=== PATIENT | female | born 1945 | race Caucasian/White ===

== ENCOUNTER 2022-01-26 18:42 | Observation (INO) ==
[2022-01-26 19:13] LABS: BILIRUBIN,URINE NEGATIVE (NEGATIVE); BLOOD/HEMOGLOBIN,URINE 2+ (NEGATIVE); GLUCOSE, URINE NEGATIVE (NEGATIVE); KETONES,URINE NEGATIVE (NEGATIVE); LEUKOCYTE ESTERASE ,URINE 3+ (NEGATIVE); NITRITES,URINE NEGATIVE (NEGATIVE); PROTEIN,URINE NEGATIVE (NEGATIVE); UROBILINOGEN,URINE NORMAL (NORMAL)
[2022-01-26 19:18] LABS: APPEARANCE,URINE SLIGHTLY HAZY (CLEAR); COLOR,URINE YELLOW (YELLOW)
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
[2022-01-26 19:38] LABS: BASOPHILS % (AUTO) 0.5 % (0.2-1.0); EOSINOPHILS # (AUTO) 0.1 x10^3/uL (0.0-0.2); EOSINOPHILS % (AUTO) 1.5 % (0.9-2.9); HEMOGLOBIN 14.9 g/dL (12.0-16.0); LYMPHOCYTES # (AUTO) 1.3 X10^3/uL (1.3-2.9); LYMPHOCYTES % (AUTO) 20.6 % (21.0-51.0); MEAN CORPUSCULAR HEMOGLOBIN 28.6 pg (27.0-34.0); MEAN CORPUSCULAR HGB CONC 33.7 g/dL (33.0-35.0); MEAN CORPUSCULAR VOLUME 84.7 fL (80.0-100.0); MEAN PLATELET VOLUME 9.1 fL (7.4-11.0); MONOCYTES # (AUTO) 0.5 x10^3/uL (0.3-0.8); MONOCYTES % (AUTO) 7.6 % (0.0-13.0); NEUTROPHILS # (AUTO) 4.4 x10^3/uL (2.2-4.8); NEUTROPHILS % (AUTO) 69.8 % (42.0-75.0); RED CELL DISTRIBUTION WIDTH 15.3 % (11.6-16.5); WHITE BLOOD COUNT 6.3 X10^3/uL (3.6-10.0)
[2022-01-26 19:40] LABS: BACTERIA,URINE 1+ /HPF (NEGATIVE); HYALINE CASTS, URINE MODERATE /LPF (NEGATIVE); SQUAMOUS EPITHELIAL CELL,UR FEW /HPF (NEGATIVE)
[2022-01-26 19:55] LABS: ALANINE AMINOTRANSFERASE 18 Units/L (12-78); ALBUMIN 3.9 g/dL (3.4-5.0); ALKALINE PHOSPHATASE 122 Units/L (46-116); ASPARTATE AMINO TRANSFERASE 22 Units/L (15-37); BLOOD UREA NITROGEN 19 mg/dL (7-18); CALCIUM 9.4 mg/dL (8.5-10.1); CARBON DIOXIDE 25.7 mmol/L (21-32); CHLORIDE 102 mmol/L (98-107); COR NA(FOR HYPERGLY) 143 mmol/L (136-145); CREATININE 1.28 mg/dL (0.55-1.02); SODIUM 142 mmol/L (136-145); TOTAL PROTEIN 8.1 g/dL (6.4-8.2); eGFR NON BLACK RACES 43 (>60)
--- NOTE | 2022-01-26 20:00 | CT ---
HISTORYAMS/lethargicSTUDYBRAIN W/O CONCOMPARISONNone available.TECHNIQUEAxial non-contrast images of the head were obtained with coronal and sagittal reformats provided.Radiation dose: 1187.80 mGy-cm total DLPFINDINGSNo abnormal areas of acute attenuation in the brain parenchyma.Lopez-white differentiation remains intact.No intracranial, extra-axial, fluid collection.No hemorrhage.Periventricular chronic microvascular disease.No mass, mass effect or midline shift.Age related brain parenchymal global atrophy.No ventriculomegaly.No acute fracture.Sinuses are well aerated.Mastoid air cells are well aerated.Globes and intra-orbital contents are unremarkable.IMPRESSIONNo acute intracranial abnormality identified.Electronically signed by: Maninder Fu (Jan 26, 2022 19:58:29)
[2022-01-26] MEDS: EFFEXOR XR 150 MG CAP 24-HR PO SCH ×2 (22:44→23:30)
[2022-01-26] MEDS: KEFLEX CAP 500 MG PO SCH ×2 (22:44→23:30)
[2022-01-26 23:01] VITALS: BMI 33.9
[2022-01-26] MEDS ORDERED: APRESOLINE INJ 20 MG VIAL IVP ONE (23:01)
[2022-01-26] MEDS: NS 1,000 ML IV 1,000 ML IV SCH (23:03)
[2022-01-26] MEDS ORDERED: CATAPRES TAB 0.1 MG PO ONE (23:12)
[2022-01-27 05:12] LABS: BASOPHILS % (AUTO) 0.4 % (0.2-1.0); EOSINOPHILS # (AUTO) 0.1 x10^3/uL (0.0-0.2); EOSINOPHILS % (AUTO) 1.6 % (0.9-2.9); HEMATOCRIT 39.5 % (36.0-47.0); HEMOGLOBIN 13.5 g/dL (12.0-16.0); LYMPHOCYTES # (AUTO) 1.3 X10^3/uL (1.3-2.9); LYMPHOCYTES % (AUTO) 23.5 % (21.0-51.0); MEAN CORPUSCULAR HEMOGLOBIN 28.7 pg (27.0-34.0); MEAN CORPUSCULAR HGB CONC 34.1 g/dL (33.0-35.0); MEAN CORPUSCULAR VOLUME 84.3 fL (80.0-100.0); MEAN PLATELET VOLUME 9.1 fL (7.4-11.0); MONOCYTES # (AUTO) 0.5 x10^3/uL (0.3-0.8); MONOCYTES % (AUTO) 9.8 % (0.0-13.0); NEUTROPHILS # (AUTO) 3.6 x10^3/uL (2.2-4.8); NEUTROPHILS % (AUTO) 64.7 % (42.0-75.0); RED BLOOD COUNT 4.68 X10^6/uL (3.5-5.4); RED CELL DISTRIBUTION WIDTH 15.4 % (11.6-16.5); WHITE BLOOD COUNT 5.6 X10^3/uL (3.6-10.0)
[2022-01-27 05:26] LABS: ALANINE AMINOTRANSFERASE 13 Units/L (12-78); ALBUMIN 3.4 g/dL (3.4-5.0); ALKALINE PHOSPHATASE 105 Units/L (46-116); ASPARTATE AMINO TRANSFERASE 17 Units/L (15-37); BLOOD UREA NITROGEN 21 mg/dL (7-18); CARBON DIOXIDE 26.8 mmol/L (21-32); CHLORIDE 104 mmol/L (98-107); COR NA(FOR HYPERGLY) 143 mmol/L (136-145); CREATININE 1.21 mg/dL (0.55-1.02); SODIUM 142 mmol/L (136-145); TOTAL PROTEIN 6.9 g/dL (6.4-8.2); eGFR NON BLACK RACES 46 (>60)
[2022-01-27] MEDS: KEFLEX CAP 500 MG PO SCH (05:28)
[2022-01-27] MEDS ORDERED: K-RIDER 10 MEQ/NS 100 ML 10 MEQ/100 ML BAG IV PRN (06:18)
[2022-01-27] MEDS ORDERED: MICRO K EXTEN CAP 10 MEQ PO PRN (06:18)
[2022-01-27] MEDS ORDERED: POTASSIUM CHLORIDE LIQ 20 MEQ UDC PO PRN (06:18)
[2022-01-27] MEDS ORDERED: POTASSIUM CHL 60 MEQ/NS 0.45% 500 ML IV PRN (06:18)
[2022-01-27] MEDS ORDERED: KLOR-CON PO PRN (06:18)
[2022-01-27] MEDS ORDERED: POTASSIUM CHL 40 MEQ/NS 0.45% 500 ML IV PRN (06:18)
[2022-01-27] MEDS: EFFEXOR XR 150 MG CAP 24-HR PO SCH (08:15)
[2022-01-27] MEDS: COREG TAB 25 MG PO SCH ×2 (08:15→20:24)
[2022-01-27] MEDS ORDERED: ROCEPHIN VIAL 1 GRAM 1 G in NS 100 ML IV + SPIKE MINIBAG* 100 ML IV SCH (09:00)
[2022-01-27] MEDS: ROCEPHIN VIAL 1 GRAM 1 G in NS 100 ML IV 100 ML IV SCH (09:45)
[2022-01-27] MEDS: LOVENOX INJ 40 MG SYR SC SCH (09:46)
--- NOTE | 2022-01-27 09:58 | RAD ---
HISTORYFellSTUDYLeft hip two viewsCOMPARISONNoneFINDINGSNo acute findings left hip. There is no evidence for fracture or dislocation, femoral head deformity or joint space abnormality.IMPRESSIONNo acute findings left hip.Electronically signed by: ALKA FIGUEROA (Jan 27, 2022 09:56:46)
--- NOTE | 2022-01-27 10:59 | DR.H&P ---
H&P - History & Physical for Day of: H&P Date: 01/26/22 - Chief Complaint Chief Complaint: AMS, RIGHT FOOT PAIN - History of Present Illness History of Present Illness: IS A 76 YEAR OLD WHITE FEMALE. SHE PRESENTED TO THE ER VIA EMS WITH FAMILY REPORTING THAT PATIENT HAS HAD ALTERED MENTAL STATUS, WEAKNESS, AND RECENT FALL. APPARENTLY, PATIENT FELL EARLY IN THE MORNING ON 01/26/22 AND HAD RIGHT FOOT AND RIGHT LEG PAIN. SHE WAS BROUGHT TO THE ER AT THAT TIME. AN XRAY WAS OBTAINED AND REVEALED: Normal appearing tibia and fibula. Suspect acute avulsion fracture from the dorsal navicular surface. SHE WAS DISCHARGED HOME, BUT HER NIECE CALLED EMS BACK TO GET HER WHEN THE CONFUSION AND WEAKNESS PERSISTED. HER PMH INCLUDES: DEMENTIA, CAD, IN, HTN, DEPRESSION, CHRONIC BACK PAIN. ON ARRIVAL TO THE ER, PATIENT WAS NOTED WITH DECREASED LOC AND DISORIENTATION. PUPILS WERE PINPOINT AND SLUGGISH. SHE DID RESPOND TO LOUD VERBAL STIMULI, BUT SPEECH WAS INCOMPREHENSIBLE. PATIENTS NIECE REPORTS THAT SHE GAVE PATIENT A XANAX THE NIGHT BEFORE TO HELP HER REST. XANAX BELONGS TO THE NIECE AND IS NOT PRESCRIBED TO THE PATIENT. ON ARRIVAL TO THE ER, VITALS WERE: 98.0-95-18-99%-181/88. LABS WERE OBTAINED. WBC 6.3, RBC 5.20, HGB 14.9, HCT 44.0, SODIUM 142, POTASSIUM 3.7, CHLORIDE 102, CARBON DIOXIDE 25.7, BUN 19, CREATININE 1.28, GLUCOSE 157, CALCIUM 9.4, AST 22, ALT 18, ALK PHOS 122, TOTAL PROTEIN 8.1, ALBUMIN 3.9. A URINALYSIS WAS OBTAINED AND REVEALED: WBC 20-30, RBC 3-5, BACTERIA 1+, LEUKOCYTES 3+. URINE DRUG SCREEN WAS POSITIVE FOR BENZODIAZEPINES. A URINE CULTURE WAS SET UP. COVID-[address] WAS OBTAINED AND REVEALED: No acute intracranial abnormality identified. EKG REVEALED: ATRIAL SENSED VENTRICULAR PACED RHYTHM WITH HR 93. IN THE ER, SHE WAS GIVEN CATAPRES 0.1MG PO X 1, KEFLEX 500MG PO X 1. SHE WAS ADMITTED TO THE HOSPITAL FOR FURTHER EVALUATION AND TREATMENT OF UTI, AMS, AVULSION FRACTURE DORSAL NAVICULAR SURFACE, HTN, DEMENTIA. SHE WAS STARTED ON NORMAL SALINE AT 80 ML/HR, ROCEPHIN 1G IV DAILY, LOVENOX 40MG SC DAILY, NORCO 5/325MG PO Q4H PRN PAIN, THE POTASSIUM AND MAGNESIUM PROTOCOLS, AND HER HOME MEDICATIONS OF VENLAFAXINE, ARICEPT, AND COREG WERE RESUMED. WE WILL CONSULT ORTHO FOR FURTHER RECOMMENDATIONS REGARDING FRACTURE. OTHERWISE, WE WILL FOLLOW-UP WITH AM LABS AND CONTINUE TO MONITOR. TIME SPENT ON CLINICAL ASSESSMENT, REVIWING LABS AND IMAGING, DECISION MAKING, AND DOCUMENTATION GREATER THAN 75 MINUTES. - Past Medical History Past Medical History: [place], Coronary Artery Disease, Dementia, Depression - Past Surgical History Surgical History: CABG/Valve Surgery, Hysterectomy - Family History Family Medical History: Diabetes Mellitus, Coronary Artery Disease, Hypertension - Social History Does patient currently use any type of tobacco product: No Have you used tobacco products in the last 12 months: No Does any household member use tobacco: Yes Alcohol Use: None Drug Use: None - Medications Home Medications: No Known Drug Allergies Allergy (Verified 01/26/22 19:18) CONTINUE taking the following medications albuterol sulfate 90 mcg/actuation aerosol inhaler 1 puff inhalation Q6H PRN 01/26/22 [History] carvedilol 25 mg tablet 1 tab PO BID 01/26/22 [History] cyclobenzaprine 10 mg tablet 1 tab PO TID 01/26/22 [History] donepezil 10 mg tablet 1 tab PO QPM 01/26/22 [History] fluticasone 250 mcg-salmeterol 50 mcg/dose blistr powdr for inhalation 1 puff inhalation BID 01/26/22 [History] naloxone 4 mg/actuation nasal spray 1 spray intranasal 1-2XD PRN 01/26/22 [History] ondansetron HCl 4 mg tablet 1 tab PO TID 01/26/22 [History] oxycodone 15 mg tablet 1 tab PO Q8H PRN 01/26/22 [History] venlafaxine 150 mg capsule,extended release 24 hr 1 cap PO QDAY 01/26/22 [History] - Review of Systems Constitutional: Weakness Eyes: No Symptoms Reported ENT: No Symptoms Reported Respiratory: No Symptoms Reported Cardiovascular: No Symptoms Reported Gastrointestinal: No Symptoms Reported Genitourinary: No Symptoms Reported Musculoskeletal: See HPI, Leg Pain (RIGHT ), Foot Pain Skin: No Symptoms Reported Neurological: Weakness, Confusion - Physical Exam Vital Signs: Temperature 97.5 F Pulse Rate [Left Brachial] 89 Pulse Rate [Brachial] 91 Pulse Rate 95 Respiratory Rate 24 Blood Pressure [Left Arm] 120/58 Blood Pressure 181/88 O2 Sat by Pulse Oximetry 100 Oriented: Not Oriented Eyes: Normal Ear: Normal Nose: Normal Throat: Normal Respiratory: Diminished Throughout Cardiovascular: Normal : Normal Auscultation: Bowel Sounds: Normal Palpation: Normal Tenderness: Normal Skin: Normal Musculoskeletal: Right, Leg, Foot, Tender Mood Description: Calm Affect: Normal Speech Pattern: Unclear, Inappropriate - Assessment/Plan (1) Urinary tract infection Qualifiers: Urinary tract infection type: acute cystitis Hematuria presence: with hematuria Qualified Code(s): N30.01 - Acute cystitis with hematuria Status: Acute Plan: ADMIT, NORMAL SALINE AT 80 ML/HR, ROCEPHIN 1G IV DAILY, LOVENOX 40MG SC DAILY, NORCO 5/325MG PO Q4H PRN PAIN, THE POTASSIUM AND MAGNESIUM PROTOCOLS, AND HER HOME MEDICATIONS OF VENLAFAXINE, ARICEPT, AND COREG WERE RESUMED. (2) Altered mental status Qualifiers: Altered mental status type: transient alteration of awareness Qualified Code(s): R40.4 - Transient alteration of awareness Status: Acute (3) Avulsion fracture of navicular bone of right foot Qualifiers: Encounter type: initial encounter Fracture type: closed Qualified Code(s): S92.251A - Displaced fracture of navicular [scaphoid] of right foot, initial encounter for closed fracture Status: Acute (4) HTN (hypertension) Qualifiers: Hypertension type: primary hypertension Qualified Code(s): I10 - Essential (primary) hypertension Status: Chronic (5) Dementia Qualifiers: Dementia type: vascular dementia Dementia behavioral disturbance: without behavioral disturbance Qualified Code(s): F01.50 - Vascular dementia without behavioral disturbance Status: Chronic - Allergies Allergies/Adverse Reactions: Allergies Allergy/AdvReac Type Severity Reaction Status Date / Time No Known Drug Allergies Allergy Verified 01/26/22 19:18
[2022-01-27] MEDS: NS 1,000 ML IV 1,000 ML IV SCH (11:47)
[2022-01-27] MEDS: NORCO 5/325 MG TAB PO PRN (13:57)
--- NOTE | 2022-01-27 16:52 | DR.CONSULT ---
CONSULT Consultation for Day of: Date: 01/27/22 Chief Complaint Chief Complaint: Right foot pain Allergies Allergies Allergy/AdvReac Type Severity Reaction Status Date / Time No Known Drug Allergies Allergy Verified 01/27/22 16:52 History of Present Illness History of Present Illness: 76 year old female who had a fall on 01/26/2022. Upon presentation to the ER, XRays of the right foot were obtained demonstrating a right navicular avulsion fracture. She reports pain in the right foot. Denies numbness, tingling or weakness in the right foot. She denies prior injury to the right foot that she can recall. Past Medical History Past Medical History: Coronary Artery Disease, Dementia, Depression and [place] Past Surgical History Surgical History: CABG/Valve Surgery and Hysterectomy Family History Family Medical History: Diabetes Mellitus, Coronary Artery Disease and Hypertension Social History Does patient currently use any type of tobacco product: No Have you used tobacco products in the last 12 months: No Does any household member use tobacco: Yes Alcohol Use: None Drug Use: None Medications Home Medications: No Known Drug Allergies Allergy (Verified 01/26/22 19:18) CONTINUE taking the following medications albuterol sulfate 90 mcg/actuation aerosol inhaler 1 puff inhalation Q6H PRN 01/26/22 [History] carvedilol 25 mg tablet 1 tab PO BID 01/26/22 [History] cyclobenzaprine 10 mg tablet 1 tab PO TID 01/26/22 [History] donepezil 10 mg tablet 1 tab PO QPM 01/26/22 [History] fluticasone 250 mcg-salmeterol 50 mcg/dose blistr powdr for inhalation 1 puff inhalation BID 01/26/22 [History] naloxone 4 mg/actuation nasal spray 1 spray intranasal 1-2XD PRN 01/26/22 [History] ondansetron HCl 4 mg tablet 1 tab PO TID 01/26/22 [History] oxycodone 15 mg tablet 1 tab PO Q8H PRN 01/26/22 [History] venlafaxine 150 mg capsule,extended release 24 hr 1 cap PO QDAY 01/26/22 [History] Physical Exam Vital Signs: Temperature 97.6 F Pulse Rate [Left Brachial] 79 Pulse Rate [Brachial] 91 Pulse Rate 95 Respiratory Rate 20 Blood Pressure [Left Arm] 106/58 Blood Pressure 181/88 O2 Sat by Pulse Oximetry 94 Oriented: Person and Place Eyes: Normal and Other Ear: Normal Nose: Other (atraumatic) Musculoskeletal: Foot (right marine water tender to palpation of the right navicular bone. Nontender in the right tibial/fibular midshaft and proximally nontender. Able to wiggle right foot.) Plan (1) Avulsion fracture of navicular bone of right foot: Status: Acute Qualifiers: Encounter type: initial encounter Fracture type: closed Qualified Code(s): S92.251A - Displaced fracture of navicular [scaphoid] of right foot, initial encounter for closed fracture Narrative Support Text: nonweightbearing right foot and ankle. Immobilize with aircast boot. Follow up in clinic within 1 week with [facility]. Plan: nonweightbearing right foot and ankle. Immobilize with aircast boot. Follow up in clinic within 1 week with [facility].
[2022-01-27] MEDS: ARICEPT TAB 10 MG PO SCH (20:24)
[2022-01-28] MEDS: NS 1,000 ML IV 1,000 ML IV SCH ×2 (01:32→13:13)
[2022-01-28 06:00] LABS: BASOPHILS % (AUTO) 0.5 % (0.2-1.0); EOSINOPHILS # (AUTO) 0.1 x10^3/uL (0.0-0.2); HEMATOCRIT 35.5 % (36.0-47.0); HEMOGLOBIN 11.9 g/dL (12.0-16.0); LYMPHOCYTES # (AUTO) 1.6 X10^3/uL (1.3-2.9); LYMPHOCYTES % (AUTO) 22.8 % (21.0-51.0); MEAN CORPUSCULAR HEMOGLOBIN 28.5 pg (27.0-34.0); MEAN CORPUSCULAR HGB CONC 33.5 g/dL (33.0-35.0); MEAN CORPUSCULAR VOLUME 85.3 fL (80.0-100.0); MEAN PLATELET VOLUME 8.6 fL (7.4-11.0); MONOCYTES # (AUTO) 0.5 x10^3/uL (0.3-0.8); MONOCYTES % (AUTO) 7.5 % (0.0-13.0); NEUTROPHILS # (AUTO) 4.6 x10^3/uL (2.2-4.8); NEUTROPHILS % (AUTO) 67.2 % (42.0-75.0); RED BLOOD COUNT 4.16 X10^6/uL (3.5-5.4); RED CELL DISTRIBUTION WIDTH 15.2 % (11.6-16.5); WHITE BLOOD COUNT 6.8 X10^3/uL (3.6-10.0)
[2022-01-28 06:11] LABS: ALANINE AMINOTRANSFERASE 13 Units/L (12-78); ALBUMIN 2.8 g/dL (3.4-5.0); ALKALINE PHOSPHATASE 99 Units/L (46-116); ASPARTATE AMINO TRANSFERASE 14 Units/L (15-37); BLOOD UREA NITROGEN 22 mg/dL (7-18); CALCIUM 8.1 mg/dL (8.5-10.1); CARBON DIOXIDE 25.8 mmol/L (21-32); CHLORIDE 107 mmol/L (98-107); COR CA(FOR HYPOALB) 9.1 mg/dL (8.5-10.1); COR NA(FOR HYPERGLY) 141 mmol/L (136-145); CREATININE 0.88 mg/dL (0.55-1.02); SODIUM 140 mmol/L (136-145); eGFR NON BLACK RACES > 60 (>60)
[2022-01-28] MEDS: EFFEXOR XR 150 MG CAP 24-HR PO SCH (08:57)
[2022-01-28] MEDS: COREG TAB 25 MG PO SCH ×2 (08:57→20:08)
[2022-01-28] MEDS: ROCEPHIN VIAL 1 GRAM 1 G in NS 100 ML IV 100 ML IV SCH (08:57)
[2022-01-28] MEDS: LOVENOX INJ 40 MG SYR SC SCH (08:58)
[2022-01-28] MEDS: ARICEPT TAB 10 MG PO SCH (20:08)
[2022-01-28] MEDS: NORCO 5/325 MG TAB PO PRN (20:12)
[2022-01-29 05:04] LABS: BASOPHILS % (AUTO) 0.5 % (0.2-1.0); EOSINOPHILS # (AUTO) 0.2 x10^3/uL (0.0-0.2); EOSINOPHILS % (AUTO) 3.6 % (0.9-2.9); HEMATOCRIT 32.6 % (36.0-47.0); LYMPHOCYTES # (AUTO) 1.7 X10^3/uL (1.3-2.9); LYMPHOCYTES % (AUTO) 34.8 % (21.0-51.0); MEAN CORPUSCULAR HEMOGLOBIN 28.8 pg (27.0-34.0); MEAN CORPUSCULAR HGB CONC 33.8 g/dL (33.0-35.0); MEAN CORPUSCULAR VOLUME 85.4 fL (80.0-100.0); MEAN PLATELET VOLUME 8.8 fL (7.4-11.0); MONOCYTES # (AUTO) 0.4 x10^3/uL (0.3-0.8); MONOCYTES % (AUTO) 8.4 % (0.0-13.0); NEUTROPHILS # (AUTO) 2.6 x10^3/uL (2.2-4.8); NEUTROPHILS % (AUTO) 52.7 % (42.0-75.0); RED BLOOD COUNT 3.82 X10^6/uL (3.5-5.4); RED CELL DISTRIBUTION WIDTH 15.2 % (11.6-16.5); WHITE BLOOD COUNT 4.9 X10^3/uL (3.6-10.0)
[2022-01-29 05:16] LABS: ALANINE AMINOTRANSFERASE 9 Units/L (12-78); ALBUMIN 2.5 g/dL (3.4-5.0); ALKALINE PHOSPHATASE 93 Units/L (46-116); ASPARTATE AMINO TRANSFERASE 10 Units/L (15-37); BLOOD UREA NITROGEN 15 mg/dL (7-18); CALCIUM 7.7 mg/dL (8.5-10.1); CARBON DIOXIDE 26.9 mmol/L (21-32); CHLORIDE 110 mmol/L (98-107); COR CA(FOR HYPOALB) 8.9 mg/dL (8.5-10.1); COR NA(FOR HYPERGLY) 143 mmol/L (136-145); CREATININE 0.78 mg/dL (0.55-1.02); SODIUM 142 mmol/L (136-145); TOTAL PROTEIN 5.5 g/dL (6.4-8.2); eGFR NON BLACK RACES > 60 (>60)
[2022-01-29] MEDS: LOVENOX INJ 40 MG SYR SC SCH (08:41)
[2022-01-29] MEDS: COREG TAB 25 MG PO SCH ×2 (08:41→21:25)
[2022-01-29] MEDS: EFFEXOR XR 150 MG CAP 24-HR PO SCH (08:41)
[2022-01-29] MEDS: ROCEPHIN VIAL 1 GRAM 1 G in NS 100 ML IV 100 ML IV SCH (08:42)
[2022-01-29] MEDS ORDERED: BUTT CREAM (COMPOUND) TOP PRN (09:08)
[2022-01-29] MEDS ORDERED: BUTT CREAM (COMPOUND) ONE (09:09)
[2022-01-29] MEDS: NS 1,000 ML IV 1,000 ML IV SCH ×2 (10:57→14:48)
[2022-01-29] MEDS: NORCO 5/325 MG TAB PO PRN ×2 (10:58→17:06)
[2022-01-29] MEDS ORDERED: POTASSIUM CHL 40 MEQ/NS 0.45% 500 ML IV PRN (14:51)
[2022-01-29] MEDS ORDERED: K-DUR TAB 20 MEQ PO PRN (14:51)
[2022-01-29] MEDS ORDERED: MICRO K EXTEN CAP 10 MEQ PO PRN (14:51)
[2022-01-29] MEDS ORDERED: KLOR-CON PO PRN (14:51)
[2022-01-29] MEDS ORDERED: K-RIDER 10 MEQ/NS 100 ML 10 MEQ/100 ML BAG IV PRN (14:51)
[2022-01-29] MEDS ORDERED: POTASSIUM CHL 60 MEQ/NS 0.45% 500 ML IV PRN (14:51)
[2022-01-29] MEDS ORDERED: POTASSIUM CHLORIDE LIQ 20 MEQ UDC PO PRN (14:51)
[2022-01-29] MEDS: K-DUR TAB 20 MEQ PO PRN (15:37)
[2022-01-29] MEDS: MAGNESIUM SULFATE 1 GRAM/100 mL PREMIX 1 G/100 ML BAG IV PRN ×2 (15:39→16:44)
[2022-01-29] MEDS ORDERED: MAGNESIUM SULFATE 1 GRAM/100 mL PREMIX 1 G/100 ML BAG IV ONE (15:42)
--- NOTE | 2022-01-29 20:16 | PCM.PROG ---
Progress Note - Progress Note for Day of Date of Exam: 01/28/22 - Subjective Subjective: IS CURRENTLY OBSERVATION STATUS. SHE IS BEING TREATED FOR A URINARY TRACT INFECTION DUE TO KLEBSIELLA PNEUMONIAE, AMS, ACUTE AVULSION FX OF NAVICULAR BONE OF RIGHT FOOT. SHE HAS A PMH OF HTN AND DEMENTIA. TODAY, SHE IS ALERT, SITTING UP IN BED ON MORNING ROUNDS. SHE ANSWERS QUESTIONS AND FOLLOWS COMMANDS APPROPRIATELY. SHE DENIES CURRENT COMPLAINTS TODAY. ON EXAMINATION, HEART IS REGULAR IN RATE AND RHYTHM. BILATERAL LUNGS ARE CLEAR TO AUSCULTATION. ABDOMEN IS ROUND, SOFT, AND NON-TENDER WITH NORMAL BOWEL SOUNDS NOTED IN ALL QUADRANTS. THERE IS A BOOT NOTED TO THE RIGHT FOOT. HER VITALS THIS MORNING ARE: 97.8-84-20-99%-103/59. LABS WERE OBTAINED. WBC 6.8, RBC 4.16, HGB 11.9, HCT 35.5, SODIUM 140, POTASSIUM 3.5, CHLORIDE 107, CARBON DIOXIDE 25.8, BUN 22, CREATININE 0.88, GLUCOSE 132, CALCIUM 8.1, TOTAL BILI 0.40, AST 14, ALT 13, ALK PHOS 99, TOTAL PROTEIN 6.0, ALBUMIN 2.8. SHE IS CURRENTLY RECEIVING NORMAL SALINE AT 80 ML/HR, ROCEPHIN 1G IV DAILY, LOVENOX 40MG SC DAILY, NORCO 5/325MG PO Q4H PRN PAIN, THE POTASSIUM AND MAGNESIUM PROTOCOLS, AND HER HOME MEDICATIONS OF VENLAFAXINE, ARICEPT, AND COREG WERE RESUMED. WE CONSULTED WITH , ORTHOPEDIC SURGEON, YESTERDAY. HE ADVISED FOR PATIENT TO WEAR BOOT AND TO BE NON-WEIGHT BEARING. HE WILL FOLLOW-UP WITH HER OUTPATIENT IN HIS OFFICE. WE WILL ORDER FOR PHYSICAL THERAPY TO WORK WITH HER TODAY. OTHERWISE, WE WILL CONTINUE WITH CURRENT PLAN OF CARE. WE PLAN TO FOLLOW-UP WITH AM LABS AND CONTINUE TO MONITOR. TIME SPENT ON CLINICAL ASSESSMENT, REVIEWING LABS AND IMAGING, DECISION MAKING, AND DOCUMENTATION GREATER THAN 45 MINUTES. - Past Medical Family Social History Past Med/Fam/Surg Hx: No changes since H&P Allergies: Allergies No Known Drug Allergies Allergy (Verified 01/27/22 16:52) - Review of Systems ROS: No change since H&P - Vital Signs and I&O's Vital Signs: Temperature 97.9 F Pulse Rate [Left Brachial] 66 Pulse Rate [Brachial] 91 Pulse Rate 95 Respiratory Rate 18 Blood Pressure [Left Arm] 145/67 Blood Pressure 181/88 O2 Sat by Pulse Oximetry 98 Intake and Output: Intake & Output 01/27/22 01/28/22 01/29/22 01/30/22 11:59 11:59 11:59 11:59 Intake Total 660 / 660 2659 / 2659 2235 / 2235 1210 / 1210 Output Total 275 / 275 380 / 380 560 / 560 300 / 300 Balance 385 / 385 2279 / 2279 1675 / 1675 910 / 910 - Physical Exam Oriented: Person, Place Eyes: Normal, Other Ear: Normal Nose: Normal Throat: Normal Respiratory: Normal Cardiovascular: Normal : Normal Auscultation: Bowel Sounds: Normal Palpation: Normal Tenderness: Normal Skin: Normal Musculoskeletal: Foot (right copy lathe tender to palpation of the right navicular bone. Nontender in the right tibial/fibular midshaft and proximally nontender. Able to wiggle right foot.) Psychiatric: Normal Mood Description: Calm Affect: Normal Speech Pattern: Clear, Inappropriate - Laboratory and Diagnostics Result Diagrams: 01/29/22 04:27 01/29/22 04:27 Labs: 01/26/22 19:02 Urine,Catheterized Urine Culture - Final Klebsiella Pneumoniae Laboratory WBC 4.9 X10^3/uL (3.6-10.0) 01/29/22 04:27 RBC 3.82 X10^6/uL (3.5-5.4) 01/29/22 04:27 Hgb 11.0 g/dL (12.0-16.0) L 01/29/22 04:27 Hct 32.6 % (36.0-47.0) L 01/29/22 04:27 MCV 85.4 fL (80.0-100.0) 01/29/22 04:27 MCH 28.8 pg (27.0-34.0) 01/29/22 04:27 MCHC 33.8 g/dL (33.0-35.0) 01/29/22 04:27 RDW 15.2 % (11.6-16.5) 01/29/22 04:27 Plt Count 156 X10^3/uL (150.0-450.0) 01/29/22 04:27 MPV 8.8 fL (7.4-11.0) 01/29/22 04:27 Neut % (Auto) 52.7 % (42.0-75.0) 01/29/22 04:27 Lymph % (Auto) 34.8 % (21.0-51.0) 01/29/22 04:27 [place] % (Auto) 8.4 % (0.0-13.0) 01/29/22 04:27 Eos % (Auto) 3.6 % (0.9-2.9) H 01/29/22 04:27 Baso % (Auto) 0.5 % (0.2-1.0) 01/29/22 04:27 Neut # (Auto) 2.6 x10^3/uL (2.2-4.8) 01/29/22 04:27 Lymph # (Auto) 1.7 X10^3/uL (1.3-2.9) 01/29/22 04:27 [place] # (Auto) 0.4 x10^3/uL (0.3-0.8) 01/29/22 04:27 Eos # (Auto) 0.2 x10^3/uL (0.0-0.2) 01/29/22 04:27 Baso # (Auto) 0.0 X10^3/uL (0.0-0.1) 01/29/22 04:27 Absolute Nucleated RBC 0.0 /100WBC 01/29/22 04:27 Sodium 142 mmol/L (136-145) 01/29/22 04:27 Corrected Sodium 143 mmol/L (136-145) 01/29/22 04:27 Potassium 3.6 mmol/L (3.5-5.1) 01/29/22 04:27 Chloride 110 mmol/L (98-107) H 01/29/22 04:27 Carbon Dioxide 26.9 mmol/L (21-32) 01/29/22 04:27 BUN 15 mg/dL (7-18) 01/29/22 04:27 Creatinine 0.78 mg/dL (0.55-1.02) 01/29/22 04:27 Est GFR (MDRD) Af Amer > 60 (>60) 01/29/22 04:27 Est GFR (MDRD) Non-Af > 60 (>60) 01/29/22 04:27 Glucose 138 mg/dL (65-99) H 01/29/22 04:27 POC Glucose (mg/dL) 142 mg/dL (65-99) H 01/28/22 20:15 Calcium 7.7 mg/dL (8.5-10.1) L 01/29/22 04:27 Corrected Calcium 8.9 mg/dL (8.5-10.1) 01/29/22 04:27 Magnesium 1.6 mg/dL (1.7-2.9) L 01/29/22 04:27 Total Bilirubin 0.20 mg/dL (0.2-1.0) 01/29/22 04:27 AST 10 Units/L (15-37) L 01/29/22 04:27 ALT 9 Units/L (12-78) L 01/29/22 04:27 Alkaline Phosphatase 93 Units/L (46-116) 01/29/22 04:27 Total Protein 5.5 g/dL (6.4-8.2) L 01/29/22 04:27 Albumin 2.5 g/dL (3.4-5.0) L 01/29/22 04:27 Globulin 3.0 g/dL (2.5-4.5) 01/29/22 04:27 Albumin/Globulin Ratio 0.8 Ratio (1.1-2.1) L 01/29/22 04:27 Specimen Type Catherized urine 01/26/22 19:02 Urine Color Yellow (YELLOW) 01/26/22 19:02 Urine Appearance Slightly hazy (CLEAR) 01/26/22 19:02 Urine pH 5.0 (5.0 - 8.0) 01/26/22 19:02 Ur Specific [place] 1.010 (1.000-1.030) 01/26/22 19:02 Urine Protein Negative (NEGATIVE) 01/26/22 19:02 Urine Glucose (UA) Negative (NEGATIVE) 01/26/22 19:02 Urine Ketones Negative (NEGATIVE) 01/26/22 19:02 Urine Blood 2+ (NEGATIVE) 01/26/22 19:02 Urine Nitrite Negative (NEGATIVE) 01/26/22 19:02 Urine Bilirubin Negative (NEGATIVE) 01/26/22 19:02 Urine Urobilinogen Normal (NORMAL) 01/26/22 19:02 Ur Leukocyte Esterase 3+ (NEGATIVE) 01/26/22 19:02 Urine RBC 3-5 /HPF (0-3) A 01/26/22 19:02 Urine WBC 20-30 /HPF (0-5) A 01/26/22 19:02 Ur Squamous Epith Cells Few /HPF (NEGATIVE) 01/26/22 19:02 Urine Bacteria 1+ /HPF (NEGATIVE) 01/26/22 19:02 Hyaline Casts Moderate /LPF (NEGATIVE) 01/26/22 19:02 Urine Mucus Moderate /HPF (NEGATIVE) 01/26/22 19:02 Ur Culture Indicated? Yes/culture set up 01/26/22 19:02 Urine Opiates Screen Negative (NEG=<300) 01/26/22 19:05 Urine Methadone Screen Negative (NEG=<300) 01/26/22 19:05 Ur Barbiturates Screen Negative (NEG=<200) 01/26/22 19:05 Ur Phencyclidine Scrn Negative (NEG=<25) 01/26/22 19:05 Ur Amphetamines Screen Negative (NEG=<1000) 01/26/22 19:05 U Benzodiazepines Scrn Positive (NEG=<200) A 01/26/22 19:05 Urine Cocaine Screen Negative (NEG=<300) 01/26/22 19:05 U Marijuana (THC) Screen Negative (NEG=<50) 01/26/22 19:05 SARS-CoV-2 (PCR) Negative (NEGATIVE) 01/26/22 21:06 - Plan (1) Urinary tract infection Status: Acute Qualifiers: Urinary tract infection type: acute cystitis Hematuria presence: with hematuria Qualified Code(s): N30.01 - Acute cystitis with hematuria Plan: NORMAL SALINE AT 80 ML/HR, ROCEPHIN 1G IV DAILY, LOVENOX 40MG SC DAILY, NORCO 5/325MG PO Q4H PRN PAIN, THE POTASSIUM AND MAGNESIUM PROTOCOLS, AND HER HOME MEDICATIONS OF VENLAFAXINE, ARICEPT, AND COREG WERE RESUMED. PHYSICAL THERAPY (2) Altered mental status Status: Acute Qualifiers: Altered mental status type: transient alteration of awareness Qualified Code(s): R40.4 - Transient alteration of awareness (3) Avulsion fracture of navicular bone of right foot Status: Acute Qualifiers: Encounter type: initial encounter Fracture type: closed Qualified Code(s): S92.251A - Displaced fracture of navicular [scaphoid] of right foot, initial encounter for closed fracture Plan: NON-WEIGHT BEARING. BOOT (4) HTN (hypertension) Status: Chronic Qualifiers: Hypertension type: primary hypertension Qualified Code(s): I10 - Essential (primary) hypertension Plan: CONTINUE HOME MEDS (5) Dementia Status: Chronic Qualifiers: Dementia type: vascular dementia Dementia behavioral disturbance: without behavioral disturbance Qualified Code(s): F01.50 - Vascular dementia without behavioral disturbance Plan: CONTINUE HOME MEDS
--- NOTE | 2022-01-29 20:19 | PCM.PROG ---
Progress Note - Progress Note for Day of Date of Exam: 01/29/22 - Subjective Subjective: IS CURRENTLY OBSERVATION STATUS. SHE IS BEING TREATED FOR A URINARY TRACT INFECTION DUE TO KLEBSIELLA PNEUMONIAE, AMS, ACUTE AVULSION FX OF NAVICULAR BONE OF RIGHT FOOT. SHE HAS A PMH OF HTN AND DEMENTIA. TODAY, SHE IS ALERT, SITTING UP IN BED ON MORNING ROUNDS. SHE ANSWERS QUESTIONS AND FOLLOWS COMMANDS APPROPRIATELY. SHE DENIES CURRENT COMPLAINTS TODAY. ON EXAMINATION, HEART IS REGULAR IN RATE AND RHYTHM. BILATERAL LUNGS ARE CLEAR TO AUSCULTATION. ABDOMEN IS ROUND, SOFT, AND NON-TENDER WITH NORMAL BOWEL SOUNDS NOTED IN ALL QUADRANTS. THERE IS A BOOT NOTED TO THE RIGHT FOOT. HER VITALS THIS MORNING ARE: 99.3-67-20-97%-136/63. LABS WERE OBTAINED. WBC 4.9, RBC 3.82, HGB 11.0, HCT 32.6, SODIUM 142, POTASSIUM 3.6, CHLORIDE 110, BUN 15, CREATININE 0.78, GLUCOSE 138, CALCIUM 7.7, MAGNESIUM 1.6, AST 10, ALT 9, TOTAL PROTEIN 5.5, ALBUMIN 2.5. SHE IS CURRENTLY RECEIVING NORMAL SALINE AT 80 ML/HR, ROCEPHIN 1G IV DAILY, LOVENOX 40MG SC DAILY, NORCO 5/325MG PO Q4H PRN PAIN, THE POTASSIUM AND MAGNESIUM PROTOCOLS, AND HER HOME MEDICATIONS OF VENLAFAXINE, ARICEPT, AND COREG WERE RESUMED. PHYSICAL THERAPY WILL CONTINUE TO WORK WITH HER TODAY. OTHERWISE, WE WILL CONTINUE WITH CURRENT PLAN OF CARE. WE PLAN TO FOLLOW-UP WITH AM LABS AND CONTINUE TO MONITOR. TIME SPENT ON CLINICAL ASSESSMENT, REVIEWING LABS AND IMAGING, DECISION MAKING, AND DOCUMENTATION GREATER THAN 45 MINUTES. - Past Medical Family Social History Past Med/Fam/Surg Hx: No changes since H&P Allergies: Allergies No Known Drug Allergies Allergy (Verified 01/27/22 16:52) - Review of Systems ROS: No change since H&P - Vital Signs and I&O's Vital Signs: Temperature 97.9 F Pulse Rate [Left Brachial] 66 Pulse Rate [Brachial] 91 Pulse Rate 95 Respiratory Rate 18 Blood Pressure [Left Arm] 145/67 Blood Pressure 181/88 O2 Sat by Pulse Oximetry 98 Intake and Output: Intake & Output 01/27/22 01/28/22 01/29/22 01/30/22 11:59 11:59 11:59 11:59 Intake Total 660 / 660 2659 / 2659 2235 / 2235 1210 / 1210 Output Total 275 / 275 380 / 380 560 / 560 300 / 300 Balance 385 / 385 2279 / 2279 1675 / 1675 910 / 910 - Physical Exam Oriented: Person, Place Eyes: Normal, Other Ear: Normal Nose: Normal Throat: Normal Respiratory: Normal Cardiovascular: Normal : Normal Auscultation: Bowel Sounds: Normal Palpation: Normal Tenderness: Normal Skin: Normal Musculoskeletal: Foot (right wreath machine tender to palpation of the right navicular bone. Nontender in the right tibial/fibular midshaft and proximally nontender. Able to wiggle right foot.) Psychiatric: Normal Mood Description: Calm Affect: Normal Speech Pattern: Clear, Inappropriate - Laboratory and Diagnostics Result Diagrams: 01/29/22 04:27 01/29/22 04:27 Labs: 01/26/22 19:02 Urine,Catheterized Urine Culture - Final Klebsiella Pneumoniae Laboratory WBC 4.9 X10^3/uL (3.6-10.0) 01/29/22 04:27 RBC 3.82 X10^6/uL (3.5-5.4) 01/29/22 04:27 Hgb 11.0 g/dL (12.0-16.0) L 01/29/22 04:27 Hct 32.6 % (36.0-47.0) L 01/29/22 04:27 MCV 85.4 fL (80.0-100.0) 01/29/22 04:27 MCH 28.8 pg (27.0-34.0) 01/29/22 04:27 MCHC 33.8 g/dL (33.0-35.0) 01/29/22 04:27 RDW 15.2 % (11.6-16.5) 01/29/22 04:27 Plt Count 156 X10^3/uL (150.0-450.0) 01/29/22 04:27 MPV 8.8 fL (7.4-11.0) 01/29/22 04:27 Neut % (Auto) 52.7 % (42.0-75.0) 01/29/22 04:27 Lymph % (Auto) 34.8 % (21.0-51.0) 01/29/22 04:27 [place] % (Auto) 8.4 % (0.0-13.0) 01/29/22 04:27 Eos % (Auto) 3.6 % (0.9-2.9) H 01/29/22 04:27 Baso % (Auto) 0.5 % (0.2-1.0) 01/29/22 04:27 Neut # (Auto) 2.6 x10^3/uL (2.2-4.8) 01/29/22 04:27 Lymph # (Auto) 1.7 X10^3/uL (1.3-2.9) 01/29/22 04:27 [place] # (Auto) 0.4 x10^3/uL (0.3-0.8) 01/29/22 04:27 Eos # (Auto) 0.2 x10^3/uL (0.0-0.2) 01/29/22 04:27 Baso # (Auto) 0.0 X10^3/uL (0.0-0.1) 01/29/22 04:27 Absolute Nucleated RBC 0.0 /100WBC 01/29/22 04:27 Sodium 142 mmol/L (136-145) 01/29/22 04:27 Corrected Sodium 143 mmol/L (136-145) 01/29/22 04:27 Potassium 3.6 mmol/L (3.5-5.1) 01/29/22 04:27 Chloride 110 mmol/L (98-107) H 01/29/22 04:27 Carbon Dioxide 26.9 mmol/L (21-32) 01/29/22 04:27 BUN 15 mg/dL (7-18) 01/29/22 04:27 Creatinine 0.78 mg/dL (0.55-1.02) 01/29/22 04:27 Est GFR (MDRD) Af Amer > 60 (>60) 01/29/22 04:27 Est GFR (MDRD) Non-Af > 60 (>60) 01/29/22 04:27 Glucose 138 mg/dL (65-99) H 01/29/22 04:27 POC Glucose (mg/dL) 142 mg/dL (65-99) H 01/28/22 20:15 Calcium 7.7 mg/dL (8.5-10.1) L 01/29/22 04:27 Corrected Calcium 8.9 mg/dL (8.5-10.1) 01/29/22 04:27 Magnesium 1.6 mg/dL (1.7-2.9) L 01/29/22 04:27 Total Bilirubin 0.20 mg/dL (0.2-1.0) 01/29/22 04:27 AST 10 Units/L (15-37) L 01/29/22 04:27 ALT 9 Units/L (12-78) L 01/29/22 04:27 Alkaline Phosphatase 93 Units/L (46-116) 01/29/22 04:27 Total Protein 5.5 g/dL (6.4-8.2) L 01/29/22 04:27 Albumin 2.5 g/dL (3.4-5.0) L 01/29/22 04:27 Globulin 3.0 g/dL (2.5-4.5) 01/29/22 04:27 Albumin/Globulin Ratio 0.8 Ratio (1.1-2.1) L 01/29/22 04:27 Specimen Type Catherized urine 01/26/22 19:02 Urine Color Yellow (YELLOW) 01/26/22 19:02 Urine Appearance Slightly hazy (CLEAR) 01/26/22 19:02 Urine pH 5.0 (5.0 - 8.0) 01/26/22 19:02 Ur Specific [place] 1.010 (1.000-1.030) 01/26/22 19:02 Urine Protein Negative (NEGATIVE) 01/26/22 19:02 Urine Glucose (UA) Negative (NEGATIVE) 01/26/22 19:02 Urine Ketones Negative (NEGATIVE) 01/26/22 19:02 Urine Blood 2+ (NEGATIVE) 01/26/22 19:02 Urine Nitrite Negative (NEGATIVE) 01/26/22 19:02 Urine Bilirubin Negative (NEGATIVE) 01/26/22 19:02 Urine Urobilinogen Normal (NORMAL) 01/26/22 19:02 Ur Leukocyte Esterase 3+ (NEGATIVE) 01/26/22 19:02 Urine RBC 3-5 /HPF (0-3) A 01/26/22 19:02 Urine WBC 20-30 /HPF (0-5) A 01/26/22 19:02 Ur Squamous Epith Cells Few /HPF (NEGATIVE) 01/26/22 19:02 Urine Bacteria 1+ /HPF (NEGATIVE) 01/26/22 19:02 Hyaline Casts Moderate /LPF (NEGATIVE) 01/26/22 19:02 Urine Mucus Moderate /HPF (NEGATIVE) 01/26/22 19:02 Ur Culture Indicated? Yes/culture set up 01/26/22 19:02 Urine Opiates Screen Negative (NEG=<300) 01/26/22 19:05 Urine Methadone Screen Negative (NEG=<300) 01/26/22 19:05 Ur Barbiturates Screen Negative (NEG=<200) 01/26/22 19:05 Ur Phencyclidine Scrn Negative (NEG=<25) 01/26/22 19:05 Ur Amphetamines Screen Negative (NEG=<1000) 01/26/22 19:05 U Benzodiazepines Scrn Positive (NEG=<200) A 01/26/22 19:05 Urine Cocaine Screen Negative (NEG=<300) 01/26/22 19:05 U Marijuana (THC) Screen Negative (NEG=<50) 01/26/22 19:05 SARS-CoV-2 (PCR) Negative (NEGATIVE) 01/26/22 21:06 - Plan (1) Urinary tract infection Status: Acute Qualifiers: Urinary tract infection type: acute cystitis Hematuria presence: with hematuria Qualified Code(s): N30.01 - Acute cystitis with hematuria Plan: NORMAL SALINE AT 80 ML/HR, ROCEPHIN 1G IV DAILY, LOVENOX 40MG SC DAILY, NORCO 5/325MG PO Q4H PRN PAIN, THE POTASSIUM AND MAGNESIUM PROTOCOLS, AND HER HOME MEDICATIONS OF VENLAFAXINE, ARICEPT, AND COREG WERE RESUMED. PHYSICAL THE RAPY (2) Altered mental status Status: Acute Qualifiers: Altered mental status type: transient alteration of awareness Qualified Code(s): R40.4 - Transient alteration of awareness (3) Avulsion fracture of navicular bone of right foot Status: Acute Qualifiers: Encounter type: initial encounter Fracture type: closed Qualified Code(s): S92.251A - Displaced fracture of navicular [scaphoid] of right foot, initial encounter for closed fracture Plan: NON-WEIGHT BEARING. BOOT (4) HTN (hypertension) Status: Chronic Qualifiers: Hypertension type: primary hypertension Qualified Code(s): I10 - Essential (primary) hypertension Plan: CONTINUE HOME MEDS (5) Dementia Status: Chronic Qualifiers: Dementia type: vascular dementia Dementia behavioral disturbance: without behavioral disturbance Qualified Code(s): F01.50 - Vascular dementia without behavioral disturbance Plan: CONTINUE HOME MEDS
[2022-01-29] MEDS: ARICEPT TAB 10 MG PO SCH (21:25)
[2022-01-30] MEDS: NS 1,000 ML IV 1,000 ML IV SCH ×2 (05:15→05:42)
[2022-01-30 06:18] LABS: BASOPHILS % (AUTO) 0.3 % (0.2-1.0); EOSINOPHILS # (AUTO) 0.2 x10^3/uL (0.0-0.2); EOSINOPHILS % (AUTO) 3.4 % (0.9-2.9); HEMATOCRIT 34.1 % (36.0-47.0); HEMOGLOBIN 11.4 g/dL (12.0-16.0); LYMPHOCYTES # (AUTO) 1.7 X10^3/uL (1.3-2.9); LYMPHOCYTES % (AUTO) 26.9 % (21.0-51.0); MEAN CORPUSCULAR HEMOGLOBIN 28.5 pg (27.0-34.0); MEAN CORPUSCULAR HGB CONC 33.4 g/dL (33.0-35.0); MEAN CORPUSCULAR VOLUME 85.4 fL (80.0-100.0); MEAN PLATELET VOLUME 9.3 fL (7.4-11.0); MONOCYTES # (AUTO) 0.5 x10^3/uL (0.3-0.8); MONOCYTES % (AUTO) 8.7 % (0.0-13.0); NEUTROPHILS # (AUTO) 3.7 x10^3/uL (2.2-4.8); NEUTROPHILS % (AUTO) 60.7 % (42.0-75.0); RED BLOOD COUNT 3.99 X10^6/uL (3.5-5.4); RED CELL DISTRIBUTION WIDTH 15.1 % (11.6-16.5); WHITE BLOOD COUNT 6.2 X10^3/uL (3.6-10.0)
[2022-01-30 06:37] LABS: ALANINE AMINOTRANSFERASE 9 Units/L (12-78); ALBUMIN 2.6 g/dL (3.4-5.0); ALKALINE PHOSPHATASE 96 Units/L (46-116); ASPARTATE AMINO TRANSFERASE 12 Units/L (15-37); BLOOD UREA NITROGEN 8 mg/dL (7-18); CALCIUM 8.2 mg/dL (8.5-10.1); CARBON DIOXIDE 25.3 mmol/L (21-32); CHLORIDE 107 mmol/L (98-107); COR CA(FOR HYPOALB) 9.3 mg/dL (8.5-10.1); COR NA(FOR HYPERGLY) 139 mmol/L (136-145); CREATININE 0.62 mg/dL (0.55-1.02); SODIUM 139 mmol/L (136-145); TOTAL PROTEIN 5.9 g/dL (6.4-8.2); eGFR NON BLACK RACES > 60 (>60)
[2022-01-30] MEDS: LOVENOX INJ 40 MG SYR SC SCH (09:55)
[2022-01-30] MEDS: EFFEXOR XR 150 MG CAP 24-HR PO SCH (09:55)
[2022-01-30] MEDS: COREG TAB 25 MG PO SCH ×2 (09:55→20:50)
[2022-01-30] MEDS: ROCEPHIN VIAL 1 GRAM 1 G in NS 100 ML IV 100 ML IV SCH (09:55)
[2022-01-30] MEDS: NORCO 5/325 MG TAB PO PRN ×2 (10:24→15:31)
[2022-01-30] MEDS: TORADOL 30 MG VIAL IVP SCH ×2 (12:15→19:28)
--- NOTE | 2022-01-30 13:06 | RAD ---
HISTORYSOB, WHEEZINGSTUDYCHEST, 1 VIEWCOMPARISONNoneFINDINGSProbable venous congestion. There may be subpleural edema in the minor fissure. Findings suggest pulmonary edema.No consolidation to suggest pneumonia. No significant pleural effusion or pneumothorax.Heart size is normal. Vascular calcifications are present compatible with atherosclerosis.Degenerative changes in the right shoulder. [Right subclavian ICD is present with leads in expected location. Median sternotomy wires are present. EKG leads are noted. There is a prosthetic heart valve.]IMPRESSION1. Findings suggesting venous congestion and pulmonary edemaElectronically signed by: Piyush Cox (Jan 30, 2022 13:04:36)
[2022-01-30] MEDS ORDERED: LASIX IVP ONE (15:34)
--- NOTE | 2022-01-30 15:44 | PCM.PROG ---
Progress Note - Progress Note for Day of Date of Exam: 01/30/22 - Subjective Subjective: IS CURRENTLY OBSERVATION STATUS. SHE IS BEING TREATED FOR A URINARY TRACT INFECTION DUE TO KLEBSIELLA PNEUMONIAE, AMS, ACUTE AVULSION FX OF NAVICULAR BONE OF RIGHT FOOT. SHE HAS A PMH OF HTN AND DEMENTIA. TODAY, SHE IS ALERT, SITTING UP IN BED ON MORNING ROUNDS. SHE ANSWERS QUESTIONS AND FOLLOWS COMMANDS APPROPRIATELY. SHE COMPLAINS OF SHORTNESS OF BREATH AND WHEEZING TODAY. SHE ALSO REPORTS INCREASED PAIN TO THE RIGHT FOOT. ON EXAMINATION, HEART IS REGULAR IN RATE AND RHYTHM. BILATERAL LUNGS ARE NOTED WITH EXPIRATORY WHEEZING. ABDOMEN IS ROUND, SOFT, AND NON-TENDER WITH NORMAL BOWEL SOUNDS NOTED IN ALL QUADRANTS. THERE IS A BOOT NOTED TO THE RIGHT FOOT. HER VITALS THIS MORNING ARE: 98.1-74-20-97%-178/84. LABS WERE OBTAINED. WBC 6.2, R BC 3.99, HGB 11.4, HCT 34.1, SODIUM 139, POTASSIUM 4.0, BUN 8, CREATININE 0.62, POTASSIUM 115, CALCIUM 8.2, AST 12, ALT 9, ALK PHOS 96, TOTAL PROTEIN 5.9, ALBUMIN 2.6. SHE IS CURRENTLY RECEIVING NORMAL SALINE AT 80 ML/HR, ROCEPHIN 1G IV DAILY, LOVENOX 40MG SC DAILY, NORCO 5/325MG PO Q4H PRN PAIN, THE POTASSIUM AND MAGNESIUM PROTOCOLS, AND HER HOME MEDICATIONS OF VENLAFAXINE, ARICEPT, AND COREG WERE RESUMED. PHYSICAL THERAPY WILL CONTINUE TO WORK WITH HER TODAY. WE WILL OBTAIN A CHEST XRAY, BNP, AND WILL HEPLOCK HER IV FLUIDS. WE WILL ADMINISTER TORADOL 30MG IV Q8H X 3 DOSES. OTHERWISE, WE WILL CONTINUE WITH CURRENT PLAN OF CARE TODAY. WE PLAN TO FOLLOW-UP WITH AM LABS AND CONTINUE TO MONITOR. TIME SPENT ON CLINICAL ASSESSMENT, REVIEWING LABS AND IMAGING, DECISION MAKING, AND DOCUMENTATION GREATER THAN 45 MINUTES. - Past Medical Family Social History Past Med/Fam/Surg Hx: No changes since H&P Allergies: Allergies No Known Drug Allergies Allergy (Verified 01/27/22 16:52) - Review of Systems ROS: No change since H&P - Vital Signs and I&O's Vital Signs: Temperature 98.4 F Pulse Rate [Left Brachial] 61 Pulse Rate [Brachial] 91 Pulse Rate 95 Respiratory Rate 20 Blood Pressure [Left Arm] 153/70 Blood Pressure 181/88 O2 Sat by Pulse Oximetry 100 Intake and Output: Intake & Output 01/28/22 01/29/22 01/30/22 01/31/22 11:59 11:59 11:59 11:59 Intake Total 2659 / 2659 2235 / 2235 2110 / 2110 Output Total 380 / 380 560 / 560 700 / 700 Balance 2279 / 2279 1675 / 1675 1410 / 1410 - Physical Exam Oriented: Person, Place Eyes: Normal, Other Ear: Normal Nose: Normal Throat: Normal Respiratory: Wheezes Cardiovascular: Normal : Normal Auscultation: Bowel Sounds: Normal Palpation: Normal Tenderness: Normal Skin: Normal Musculoskeletal: Foot (right kier tender to palpation of the right navicular bone. Nontender in the right tibial/fibular midshaft and proximally nontender. Able to wiggle right foot.) Psychiatric: Normal Mood Description: Calm Affect: Normal Speech Pattern: Clear, Inappropriate - Laboratory and Diagnostics Result Diagrams: 01/30/22 05:28 01/30/22 05:28 Labs: 01/26/22 19:02 Urine,Catheterized Urine Culture - Final Klebsiella Pneumoniae Laboratory WBC 6.2 X10^3/uL (3.6-10.0) 01/30/22 05:28 RBC 3.99 X10^6/uL (3.5-5.4) 01/30/22 05:28 Hgb 11.4 g/dL (12.0-16.0) L 01/30/22 05:28 Hct 34.1 % (36.0-47.0) L 01/30/22 05:28 MCV 85.4 fL (80.0-100.0) 01/30/22 05:28 MCH 28.5 pg (27.0-34.0) 01/30/22 05:28 MCHC 33.4 g/dL (33.0-35.0) 01/30/22 05:28 RDW 15.1 % (11.6-16.5) 01/30/22 05:28 Plt Count 169 X10^3/uL (150.0-450.0) 01/30/22 05:28 MPV 9.3 fL (7.4-11.0) 01/30/22 05:28 Neut % (Auto) 60.7 % (42.0-75.0) 01/30/22 05:28 Lymph % (Auto) 26.9 % (21.0-51.0) 01/30/22 05:28 [place] % (Auto) 8.7 % (0.0-13.0) 01/30/22 05:28 Eos % (Auto) 3.4 % (0.9-2.9) H 01/30/22 05:28 Baso % (Auto) 0.3 % (0.2-1.0) 01/30/22 05:28 Neut # (Auto) 3.7 x10^3/uL (2.2-4.8) 01/30/22 05: Lymph # (Auto) 1.7 X10^3/uL (1.3-2.9) 01/30/22 05:28 [place] # (Auto) 0.5 x10^3/uL (0.3-0.8) 01/30/22 05: Eos # (Auto) 0.2 x10^3/uL (0.0-0.2) 01/30/22 05:28 Baso # (Auto) 0.0 X10^3/uL (0.0-0.1) 01/30/22 05:28 Absolute Nucleated RBC 0.1 /100WBC 01/30/22 05:28 Sodium 139 mmol/L (136-145) 01/30/22 05:28 Corrected Sodium 139 mmol/L (136-145) 01/30/22 05:28 Potassium 4.0 mmol/L (3.5-5.1) 01/30/22 05:28 Chloride 107 mmol/L (98-107) 01/30/22 05:28 Carbon Dioxide 25.3 mmol/L (21-32) 01/30/22 05:28 BUN 8 mg/dL (7-18) 01/30/22 05:28 Creatinine 0.62 mg/dL (0.55-1.02) 01/30/22 05:28 Est GFR (MDRD) Af Amer > 60 (>60) 01/30/22 05:28 Est GFR (MDRD) Non-Af > 60 (>60) 01/30/22 05:28 Glucose 115 mg/dL (65-99) H 01/30/22 05:28 POC Glucose (mg/dL) 142 mg/dL (65-99) H 01/28/22 20:15 Calcium 8.2 mg/dL (8.5-10.1) L 01/30/22 05:28 Corrected Calcium 9.3 mg/dL (8.5-10.1) 01/30/22 05:28 Magnesium 2.0 mg/dL (1.7-2.9) 01/30/22 05:28 Total Bilirubin 0.20 mg/dL (0.2-1.0) 01/30/22 05:28 AST 12 Units/L (15-37) L 01/30/22 05:28 ALT 9 Units/L (12-78) L 01/30/22 05:28 Alkaline Phosphatase 96 Units/L (46-116) 01/30/22 05:28 B-Natriuretic Peptide 487 pg/mL (0-79) H 01/30/22 05:28 Total Protein 5.9 g/dL (6.4-8.2) L 01/30/22 05:28 Albumin 2.6 g/dL (3.4-5.0) L 01/30/22 05:28 Globulin 3.3 g/dL (2.5-4.5) 01/30/22 05:28 Albumin/Globulin Ratio 0.8 Ratio (1.1-2.1) L 01/30/22 05:28 Specimen Type Catherized urine 01/26/22 19:02 Urine Color Yellow (YELLOW) 01/26/22 19:02 Urine Appearance Slightly hazy (CLEAR) 01/26/22 19:02 Urine pH 5.0 (5.0 - 8.0) 01/26/22 19:02 Ur Specific [place] 1.010 (1.000-1.030) 01/26/22 19:02 Urine Protein Negative (NEGATIVE) 01/26/22 19:02 Urine Glucose (UA) Negative (NEGATIVE) 01/26/22 19:02 Urine Ketones Negative (NEGATIVE) 01/26/22 19:02 Urine Blood 2+ (NEGATIVE) 01/26/22 19:02 Urine Nitrite Negative (NEGATIVE) 01/26/22 19:02 Urine Bilirubin Negative (NEGATIVE) 01/26/22 19:02 Urine Urobilinogen Normal (NORMAL) 01/26/22 19:02 Ur Leukocyte Esterase 3+ (NEGATIVE) 01/26/22 19:02 Urine RBC 3-5 /HPF (0-3) A 01/26/22 19:02 Urine WBC 20-30 /HPF (0-5) A 01/26/22 19:02 Ur Squamous Epith Cells Few /HPF (NEGATIVE) 01/26/22 19:02 Urine Bacteria 1+ /HPF (NEGATIVE) 01/26/22 19:02 Hyaline Casts Moderate /LPF (NEGATIVE) 01/26/22 19:02 Urine Mucus Moderate /HPF (NEGATIVE) 01/26/22 19:02 Ur Culture Indicated? Yes/culture set up 01/26/22 19:02 Urine Opiates Screen Negative (NEG=<300) 01/26/22 19:05 Urine Methadone Screen Negative (NEG=<300) 01/26/22 19:05 Ur Barbiturates Screen Negative (NEG=<200) 01/26/22 19:05 Ur Phencyclidine Scrn Negative (NEG=<25) 01/26/22 19:05 Ur Amphetamines Screen Negative (NEG=<1000) 01/26/22 19:05 U Benzodiazepines Scrn Positive (NEG=<200) A 01/26/22 19:05 Urine Cocaine Screen Negative (NEG=<300) 01/26/22 19:05 U Marijuana (THC) Screen Negative (NEG=<50) 01/26/22 19:05 SARS-CoV-2 (PCR) Negative (NEGATIVE) 01/26/22 21:06 - Plan (1) Urinary tract infection Status: Acute Qualifiers: Urinary tract infection type: acute cystitis Hematuria presence: with hematuria Qualified Code(s): N30.01 - Acute cystitis with hematuria Plan: NORMAL SALINE AT 80 ML/HR, ROCEPHIN 1G IV DAILY, LOVENOX 40MG SC DAILY, NORCO 5/325MG PO Q4H PRN PAIN, THE POTASSIUM AND MAGNESIUM PROTOCOLS, AND HER HOME MEDICATIONS OF VENLAFAXINE, ARICEPT, AND COREG WERE RESUMED. PHYSICAL THERAPY (2) Altered mental status Status: Acute Qualifiers: Altered mental status type: transient alteration of awareness Qualified Code(s): R40.4 - Transient alteration of awareness (3) Avulsion fracture of navicular bone of right foot Status: Acute Qualifiers: Encounter type: initial encounter Fracture type: closed Qualified Code(s): S92.251A - Displaced fracture of navicular [scaphoid] of right foot, initial encounter for closed fracture Plan: NON-WEIGHT BEARING. BOOT (4) Shortness of breath Status: Acute (5) HTN (hypertension) Status: Chronic Qualifiers: Hypertension type: primary hypertension Qualified Code(s): I10 - Essential (primary) hypertension Plan: CONTINUE HOME MEDS (6) Dementia Status: Chronic Qualifiers: Dementia type: vascular dementia Dementia behavioral disturbance: without behavioral disturbance Qualified Code(s): F01.50 - Vascular dementia without behavioral disturbance Plan: CONTINUE HOME MEDS (7) Asthma Status: Chronic Qualifiers: Asthma severity: mild Asthma persistence: intermittent Asthma complication type: unspecified Qualified Code(s): J45.20 - Mild intermittent asthma, uncomplicated
[2022-01-30] MEDS: ARICEPT TAB 10 MG PO SCH (20:50)
[2022-01-31 05:50] LABS: BASOPHILS % (AUTO) 0.5 % (0.2-1.0); EOSINOPHILS # (AUTO) 0.2 x10^3/uL (0.0-0.2); HEMATOCRIT 31.3 % (36.0-47.0); HEMOGLOBIN 10.7 g/dL (12.0-16.0); LYMPHOCYTES # (AUTO) 1.7 X10^3/uL (1.3-2.9); LYMPHOCYTES % (AUTO) 37.6 % (21.0-51.0); MEAN CORPUSCULAR HEMOGLOBIN 28.6 pg (27.0-34.0); MEAN CORPUSCULAR HGB CONC 34.1 g/dL (33.0-35.0); MEAN CORPUSCULAR VOLUME 83.9 fL (80.0-100.0); MEAN PLATELET VOLUME 9.1 fL (7.4-11.0); MONOCYTES # (AUTO) 0.4 x10^3/uL (0.3-0.8); MONOCYTES % (AUTO) 8.9 % (0.0-13.0); NEUTROPHILS # (AUTO) 2.2 x10^3/uL (2.2-4.8); RED BLOOD COUNT 3.74 X10^6/uL (3.5-5.4); RED CELL DISTRIBUTION WIDTH 14.8 % (11.6-16.5); WHITE BLOOD COUNT 4.6 X10^3/uL (3.6-10.0)
[2022-01-31 06:05] LABS: ALANINE AMINOTRANSFERASE 8 Units/L (12-78); ALBUMIN 2.5 g/dL (3.4-5.0); ALKALINE PHOSPHATASE 87 Units/L (46-116); ASPARTATE AMINO TRANSFERASE 12 Units/L (15-37); BLOOD UREA NITROGEN 11 mg/dL (7-18); CALCIUM 8.2 mg/dL (8.5-10.1); CARBON DIOXIDE 29.5 mmol/L (21-32); CHLORIDE 104 mmol/L (98-107); COR CA(FOR HYPOALB) 9.4 mg/dL (8.5-10.1); CREATININE 0.85 mg/dL (0.55-1.02); SODIUM 139 mmol/L (136-145); TOTAL PROTEIN 5.6 g/dL (6.4-8.2); eGFR NON BLACK RACES > 60 (>60)
[2022-01-31] MEDS: EFFEXOR XR 150 MG CAP 24-HR PO SCH (09:43)
[2022-01-31] MEDS: COREG TAB 25 MG PO SCH ×2 (09:43→20:33)
[2022-01-31] MEDS: ROCEPHIN VIAL 1 GRAM 1 G in NS 100 ML IV 100 ML IV SCH (09:43)
[2022-01-31] MEDS: LOVENOX INJ 40 MG SYR SC SCH (09:43)
[2022-01-31] MEDS: DUONEB 0.5 MG/3 MG (3 mL) NEB SCH ×4 (10:27→21:14)
[2022-01-31] MEDS: LASIX IVP SCH ×2 (11:43→16:30)
--- NOTE | 2022-01-31 15:08 | RAD ---
EXAM: CHEST X-RAYHISTORY: Altered mental status. Shortness of breath. Wheezing.TECHNIQUE: AP CXR dated January 31, 2022 1226.COMPARISON: CXR dated January 30, 2022FINDINGS:There is a right anterior chest wall subclavian cardiac pacer with intact pacer wires to the right atrium and right ventricle. Residual left-sided cardiac pacer wires are noted in situ. The patient is status post median sternotomy for aortic valve replacement.There is severe aortic atherosclerosis. The heart size and mediastinum are otherwise within normal limits. There is stable appearance of minimal thickening of the minor fissure (of doubtful clinical significance). There is stable asymmetrical crowding of the right infrahilar/lower lobe bronchopulmonary markings which may represent mild atelectatic change and/are mild bronchitis or developing bronchopneumonia in the appropriate clinical setting.The lung macdonald and costophrenic angles are clear. There is no acute parenchymal infiltrate, pleural effusion, or pneumothorax seen. The visualized bony structures are within normal limits.IMPRESSION:1. Stable asymmetrical crowding of the right infrahilar/lower lobe bronchopulmonary markings which may represent mild atelectatic change and/are mild bronchitis or developing bronchopneumonia in the appropriate clinical setting.2. No significant interval change from the previous exam.Electronically signed by: Royer Nunn (Jan 31, 2022 15:07:05)
--- NOTE | 2022-01-31 18:13 | PCM.PROG ---
Progress Note - Progress Note for Day of Date of Exam: 01/31/22 - Subjective Subjective: IS CURRENTLY OBSERVATION STATUS. SHE IS BEING TREATED FOR A URINARY TRACT INFECTION DUE TO KLEBSIELLA PNEUMONIAE, AMS, ACUTE AVULSION FX OF NAVICULAR BONE OF RIGHT FOOT. SHE HAS A PMH OF HTN AND DEMENTIA. TODAY, SHE IS ALERT, SITTING UP IN BED ON MORNING ROUNDS. SHE ANSWERS QUESTIONS AND FOLLOWS COMMANDS APPROPRIATELY. SHE CONTINUES WITH COMPLAINTS OF SHORTNESS OF BREATH AND WHEEZING TODAY. ON EXAMINATION, HEART IS REGULAR IN RATE AND RHYTHM. BILATERAL LUNGS ARE NOTED WITH EXPIRATORY WHEEZING. ABDOMEN IS ROUND, SOFT, AND NON-TENDER WITH NORMAL BOWEL SOUNDS NOTED IN ALL QUADRANTS. THERE IS A BOOT NOTED TO THE RIGHT FOOT. HER VITALS THIS MORNING ARE: 98.0-64-20-97%-128/58. LABS WERE OBTAINED. WBC 4.6, RBC 3.74, HGB 10.7, HCT 31.3, PLT COUNT 165, SODIUM 139, POTASSIUM 3.9, BUN 11, CREATININE 0.85, GLUCOSE 106, CALCIUM 8.2, AST 12, ALT 8, ALK PHOS 87, BNP 291, TOTAL PROTEIN 5.6, ALBUMIN 2.5. A CHEST XRAY WAS OBTAINED AND REVEALED: 1. Stable asymmetrical crowding of the right infrahilar/lower lobe bronchopulmonary markings which may represent mild atelectatic change and /are mild bronchitis or developing bronchopneumonia in the appropriate clinical setting. 2. No significant interval change from the previous exam. SHE RECEIVED A DOSE OF LASIX LAST NIGHT. SHE IS CURRENTLY RECEIVING ROCEPHIN 1G IV DAILY, LOVENOX 40MG SC DAILY, NORCO 5/325MG PO Q4H PRN PAIN, THE POTASSIUM AND MAGNESIUM PROTOCOLS, AND HER HOME MEDICATIONS OF VENLAFAXINE, ARICEPT, AND COREG WERE RESUMED. PHYSICAL THERAPY WILL CONTINUE TO WORK WITH HER TODAY. WE WILL DISCONTINUE THE ROCEPHIN. WE WILL ADD LEVAQUIN 500MG IV DAILY, DUONEBS QID, PULMICORT NEBS BID, AND LASIX 40MG IV BID. OTHERWISE, WE WILL CONTINUE WITH CURRENT PLAN OF CARE TODAY. WE PLAN TO FOLLOW-UP WITH AM LABS AND CONTINUE TO MO NITOR. TIME SPENT ON CLINICAL ASSESSMENT, REVIEWING LABS AND IMAGING, DECISION MAKING, AND DOCUMENTATION GREATER THAN 45 MINUTES. - Past Medical Family Social History Past Med/Fam/Surg Hx: No changes since H&P Allergies: Allergies No Known Drug Allergies Allergy (Verified 01/27/22 16:52) - Review of Systems ROS: No change since H&P - Vital Signs and I&O's Vital Signs: Temperature 98.8 F Pulse Rate [Left Brachial] 61 Pulse Rate [Brachial] 91 Pulse Rate 61 Respiratory Rate 20 Blood Pressure [Left Arm] 154/69 Blood Pressure 181/88 O2 Sat by Pulse Oximetry 97 Intake and Output: Intake & Output 01/29/22 01/30/22 01/31/22 02/01/22 11:59 11:59 11:59 11:59 Intake Total 2235 / 2235 2110 / 2110 1220 / 1220 920 / 920 Output Total 560 / 560 700 / 700 1999 / 1999 1300 / 1300 Balance 1675 / 1675 1410 / 1410 -780 / -780 -380 / -380 - Physical Exam Oriented: Person, Place Eyes: Normal, Other Ear: Normal Nose: Normal Throat: Normal Respiratory: Wheezes Cardiovascular: Normal : Normal Auscultation: Bowel Sounds: Normal Palpation: Normal Tenderness: Normal Skin: Normal Musculoskeletal: Foot (right chain tender to palpation of the right navicular bone. Nontender in the right tibial/fibular midshaft and proximally nontender. Able to wiggle right foot.) Psychiatric: Normal Mood Description: Calm Affect: Normal Speech Pattern: Clear, Inappropriate - Laboratory and Diagnostics Result Diagrams: 01/31/22 04:47 01/31/22 04:48 Labs: 01/26/22 19:02 Urine,Catheterized Urine Culture - Final Klebsiella Pneumoniae Laboratory WBC 4.6 X10^3/uL (3.6-10.0) 01/31/22 04:47 RBC 3.74 X10^6/uL (3.5-5.4) 01/31/22 04:47 Hgb 10.7 g/dL (12.0-16.0) L 01/31/22 04:47 Hct 31.3 % (36.0-47.0) L 01/31/22 04:47 MCV 83.9 fL (80.0-100.0) 01/31/22 04:47 MCH 28.6 pg (27.0-34.0) 01/31/22 04:47 MCHC 34.1 g/dL (33.0-35.0) 01/31/22 04:47 RDW 14.8 % (11.6-16.5) 01/31/22 04:47 Plt Count 165 X10^3/uL (150.0-450.0) 01/31/22 04:47 MPV 9.1 fL (7.4-11.0) 01/31/22 04:47 Neut % (Auto) 48.0 % (42.0-75.0) 01/31/22 04:47 Lymph % (Auto) 37.6 % (21.0-51.0) 01/31/22 04:47 [place] % (Auto) 8.9 % (0.0-13.0) 01/31/22 04:47 Eos % (Auto) 5.0 % (0.9-2.9) H 01/31/22 04:47 Baso % (Auto) 0.5 % (0.2-1.0) 01/31/22 04:47 Neut # (Auto) 2.2 x10^3/uL (2.2-4.8) 01/31/22 04:47 Lymph # (Auto) 1.7 X10^3/uL (1.3-2.9) 01/31/22 04:47 [place] # (Auto) 0.4 x10^3/uL (0.3-0.8) 01/31/22 04:47 Eos # (Auto) 0.2 x10^3/uL (0.0-0.2) 01/31/22 04:47 Baso # (Auto) 0.0 X10^3/uL (0.0-0.1) 01/31/22 04:47 Absolute Nucleated RBC 0.1 /100WBC 01/31/22 04:47 Sodium 139 mmol/L (136-145) 01/31/22 04:48 Corrected Sodium TNP 01/31/22 04:48 Potassium 3.9 mmol/L (3.5-5.1) 01/31/22 04:48 Chloride 104 mmol/L (98-107) 01/31/22 04:48 Carbon Dioxide 29.5 mmol/L (21-32) 01/31/22 04:48 BUN 11 mg/dL (7-18) 01/31/22 04:48 Creatinine 0.85 mg/dL (0.55-1.02) 01/31/22 04:48 Est GFR (MDRD) Af Amer > 60 (>60) 01/31/22 04:48 Est GFR (MDRD) Non-Af > 60 (>60) 01/31/22 04:48 Glucose 106 mg/dL (65-99) H 01/31/22 04:48 POC Glucose (mg/dL) 142 mg/dL (65-99) H 01/28/22 20:15 Calcium 8.2 mg/dL (8.5-10.1) L 01/31/22 04:48 Corrected Calcium 9.4 mg/dL (8.5-10.1) 01/31/22 04:48 Magnesium 2.0 mg/dL (1.7-2.9) 01/30/22 05:28 Total Bilirubin 0.30 mg/dL (0.2-1.0) 01/31/22 04:48 AST 12 Units/L (15-37) L 01/31/22 04:48 ALT 8 Units/L (12-78) L 01/31/22 04:48 Alkaline Phosphatase 87 Units/L (46-116) 01/31/22 04:48 B-Natriuretic Peptide 291 pg/mL (0-79) H 01/31/22 04:48 Total Protein 5.6 g/dL (6.4-8.2) L 01/31/22 04:48 Albumin 2.5 g/dL (3.4-5.0) L 01/31/22 04:48 Globulin 3.1 g/dL (2.5-4.5) 01/31/22 04:48 Albumin/Globulin Ratio 0.8 Ratio (1.1-2.1) L 01/31/22 04:48 Specimen Type Catherized urine 01/26/22 19:02 Urine Color Yellow (YELLOW) 01/26/22 19:02 Urine Appearance Slightly hazy (CLEAR) 01/26/22 19:02 Urine pH 5.0 (5.0 - 8.0) 01/26/22 19:02 Ur Specific [place] 1.010 (1.000-1.030) 01/26/22 19:02 Urine Protein Negative (NEGATIVE) 01/26/22 19:02 Urine Glucose (UA) Negative (NEGATIVE) 01/26/22 19:02 Urine Ketones Negative (NEGATIVE) 01/26/22 19:02 Urine Blood 2+ (NEGATIVE) 01/26/22 19:02 Urine Nitrite Negative (NEGATIVE) 01/26/22 19:02 Urine Bilirubin Negative (NEGATIVE) 01/26/22 19:02 Urine Urobilinogen Normal (NORMAL) 01/26/22 19:02 Ur Leukocyte Esterase 3+ (NEGATIVE) 01/26/22 19:02 Urine RBC 3-5 /HPF (0-3) A 01/26/22 19:02 Urine WBC 20-30 /HPF (0-5) A 01/26/22 19:02 Ur Squamous Epith Cells Few /HPF (NEGATIVE) 01/26/22 19:02 Urine Bacteria 1+ /HPF (NEGATIVE) 01/26/22 19:02 Hyaline Casts Moderate /LPF (NEGATIVE) 01/26/22 19:02 Urine Mucus Moderate /HPF (NEGATIVE) 01/26/22 19:02 Ur Culture Indicated? Yes/culture set up 01/26/22 19:02 Urine Opiates Screen Negative (NEG=<300) 01/26/22 19:05 Urine Methadone Screen Negative (NEG=<300) 01/26/22 19:05 Ur Barbiturates Screen Negative (NEG=<200) 01/26/22 19:05 Ur Phencyclidine Scrn Negative (NEG=<25) 01/26/22 19:05 Ur Amphetamines Screen Negative (NEG=<1000) 01/26/22 19:05 U Benzodiazepines Scrn Positive (NEG=<200) A 01/26/22 19:05 Urine Cocaine Screen Negative (NEG=<300) 01/26/22 19:05 U Marijuana (THC) Screen Negative (NEG=<50) 01/26/22 19:05 SARS-CoV-2 (PCR) Negative (NEGATIVE) 01/26/22 21:06 - Plan (1) Bronchopneumonia Status: Acute Plan: SUPPLEMENTAL OXYGEN, LEVAQUIN 500MG IV DAILY, DUONEBS QID, PULMICORT NEBS BID, LOVENOX 40MG SC DAILY, NORCO 5/325MG PO Q4H PRN PAIN, THE POTASSIUM AND MAGNESIUM PROTOCOLS, AND HER HOME MEDICATIONS OF VENLAFAXINE, ARICEPT, AND COREG WERE RESUMED. PHYSICAL THERAPY (2) Pulmonary edema Status: Acute Qualifiers: Chronicity: acute Qualified Code(s): J81.0 - Acute pulmonary edema Plan: LASIX 40MG IV BID (3) Urinary tract infection Status: Acute Qualifiers: Urinary tract infection type: acute cystitis Hematuria presence: with hematuria Qualified Code(s): N30.01 - Acute cystitis with hematuria (4) Altered mental status Status: Acute Qualifiers: Altered mental status type: transient alteration of awareness Qualified Code(s): R40.4 - Transient alteration of awareness (5) Avulsion fracture of navicular bone of right foot Status: Acute Qualifiers: Encounter type: initial encounter Fracture type: closed Qualified C ode(s): S92.251A - Displaced fracture of navicular [scaphoid] of right foot, initial encounter for closed fracture Plan: NON-WEIGHT BEARING. BOOT (6) Shortness of breath Status: Acute (7) HTN (hypertension) Status: Chronic Qualifiers: Hypertension type: primary hypertension Qualified Code(s): I10 - Essential (primary) hypertension Plan: CONTINUE HOME MEDS (8) Dementia Status: Chronic Qualifiers: Dementia type: vascular dementia Dementia behavioral disturbance: without behavioral disturbance Qualified Code(s): F01.50 - Vascular dementia without behavioral disturbance Plan: CONTINUE HOME MEDS (9) Asthma Status: Chronic Qualifiers: Asthma severity: mild Asthma persistence: intermittent Asthma complication type: unspecified Qualified Code(s): J45.20 - Mild intermittent a sthma, uncomplicated
[2022-01-31] MEDS: ARICEPT TAB 10 MG PO SCH (20:33)
[2022-01-31] MEDS: LEVAQUIN PREMIX IV 500 MG 500 MG/100 ML BAG IV SCH (20:33)
[2022-01-31] MEDS: NORCO 5/325 MG TAB PO PRN (20:52)
[2022-02-01 05:43] LABS: BASOPHILS % (AUTO) 0.6 % (0.2-1.0); EOSINOPHILS # (AUTO) 0.2 x10^3/uL (0.0-0.2); EOSINOPHILS % (AUTO) 4.9 % (0.9-2.9); HEMATOCRIT 33.4 % (36.0-47.0); HEMOGLOBIN 11.5 g/dL (12.0-16.0); LYMPHOCYTES # (AUTO) 1.4 X10^3/uL (1.3-2.9); LYMPHOCYTES % (AUTO) 31.6 % (21.0-51.0); MEAN CORPUSCULAR HEMOGLOBIN 28.8 pg (27.0-34.0); MEAN CORPUSCULAR HGB CONC 34.5 g/dL (33.0-35.0); MEAN CORPUSCULAR VOLUME 83.7 fL (80.0-100.0); MEAN PLATELET VOLUME 9.1 fL (7.4-11.0); MONOCYTES # (AUTO) 0.4 x10^3/uL (0.3-0.8); MONOCYTES % (AUTO) 9.1 % (0.0-13.0); NEUTROPHILS # (AUTO) 2.4 x10^3/uL (2.2-4.8); NEUTROPHILS % (AUTO) 53.8 % (42.0-75.0); RED BLOOD COUNT 3.99 X10^6/uL (3.5-5.4); RED CELL DISTRIBUTION WIDTH 14.6 % (11.6-16.5); WHITE BLOOD COUNT 4.5 X10^3/uL (3.6-10.0)
[2022-02-01 06:02] LABS: ALANINE AMINOTRANSFERASE 11 Units/L (12-78); ALBUMIN 2.6 g/dL (3.4-5.0); ALKALINE PHOSPHATASE 88 Units/L (46-116); ASPARTATE AMINO TRANSFERASE 15 Units/L (15-37); BLOOD UREA NITROGEN 14 mg/dL (7-18); CALCIUM 8.3 mg/dL (8.5-10.1); CARBON DIOXIDE 33.6 mmol/L (21-32); CHLORIDE 100 mmol/L (98-107); COR CA(FOR HYPOALB) 9.4 mg/dL (8.5-10.1); COR NA(FOR HYPERGLY) 140 mmol/L (136-145); CREATININE 0.84 mg/dL (0.55-1.02); SODIUM 139 mmol/L (136-145); TOTAL PROTEIN 5.9 g/dL (6.4-8.2); eGFR NON BLACK RACES > 60 (>60)
--- NOTE | 2022-02-01 06:34 | RAD ---
HISTORY:Shortness of breath, wheezingStudy: Single view chestComparison:1 day priorFindings:Allowing for differences in positioning no significant interval change in perihilar interstitial opacities and probable right lower lobe scarring. Sternotomy changes post aortic valve repair. Stable AICD. No pneumothorax identified.IMPRESSION:Stable chest.Electronically signed by: GWEN GOODMAN (Feb 01, 2022 06:33:35)
[2022-02-01 08:13] VITALS: BP 201/81
[2022-02-01] MEDS: K-DUR TAB 20 MEQ PO PRN (08:19)
[2022-02-01] MEDS: EFFEXOR XR 150 MG CAP 24-HR PO SCH (08:20)
[2022-02-01] MEDS: NORCO 5/325 MG TAB PO PRN (08:20)
[2022-02-01] MEDS: COREG TAB 25 MG PO SCH (08:20)
[2022-02-01] MEDS: LEVAQUIN PREMIX IV 500 MG 500 MG/100 ML BAG IV SCH (08:21)
[2022-02-01] MEDS: LOVENOX INJ 40 MG SYR SC SCH (08:22)
[2022-02-01] MEDS: DUONEB 0.5 MG/3 MG (3 mL) NEB SCH (08:53)
== END 2022-02-01 12:30 | disposition home or self-care (01) ==
LOC: ER 18:42 → MED/SURG 18:42
PROVIDERS: ADMIT Internal Medicine; ATTEND Internal Medicine
DX: Y92.9 Unspecified place or not applicable; J81.0 Acute pulmonary edema; F01.50 Vascular dementia, unspecified severity, without behavioral disturbance, psychotic disturbance, mood disturbance, and anxiety; R26.89 Other abnormalities of gait and mobility; J45.20 Mild intermittent asthma, uncomplicated; W18.39XA Other fall on same level, initial encounter; J18.0 Bronchopneumonia, unspecified organism; B96.1 Klebsiella pneumoniae [K. pneumoniae] as the cause of diseases classified elsewhere; R06.02 Shortness of breath; S92.251A Displaced fracture of navicular [scaphoid] of right foot, initial encounter for closed fracture; I25.10 Atherosclerotic heart disease of native coronary artery without angina pectoris; N39.0 Urinary tract infection, site not specified; R41.82 Altered mental status, unspecified